=== PATIENT | male | born 1975 | race African-American/Black ===

== ENCOUNTER 2016-07-18 19:20 | Emergency (ER) | payer MEDICARE, OTHER ==
--- NOTE | ~2016-07-18 | EKG ---
PATIENT: JENNIFER GUERRERO UNIT #: [id number] Ventricular Rate: 108 BPM Atrial Rate: 108 BPM P-R Interval: 190 ms QRS Duration: 82 ms Q-T Interval: 332 ms QTC Calculation(Bezet): 444 ms P [place]: 69 degrees Calculated R [place]: 108 degrees Calculated T [place]: 50 degrees Diagnosis Line: Sinus tachycardia Diagnosis Line: Rightward axis Diagnosis Line: Borderline ECG Diagnosis Line: No previous ECGs available Diagnosis Line: Confirmed by AYALA EDMOND MD ([id number]) on Diagnosis Line: 07/20/2016 10:23:58 PM INTERPRETING MD: JOEL
--- NOTE | ~2016-07-18 | CR72 ---
[facility] A Service of [facility] & [facility] RADIOLOGY TEXT RESULTS PATIENT: JENNIFER GUERRERO LOCATION: [facility] : 75 UNIT #: [id number] AGE: [address]: Rene Lewis MD SEX: M ORDER DR: [id number] [facility] [address] [place], [place] [address] [id number] E MR#: [id number] Acc #: [id number] NAME: JENNIFER GUERRERO : 1975 SEX: M STUDY DATE/TIME: 07/18/2016 18:30 UNIT: [facility] ROOM: STUDY DESCRIPTION: CR Chest Single View Portable Attending Physician: Yoandy Mariscal Referring Physician: Primary Care Physician No Ordering Physician: Ed Doctor [id number] [facility] Primary Care Physician: No Primary Care Physician MEDICAL IMAGING REPORT This report is preliminary unless electronic signature is present EXAM Portable chest HISTORY Unresponsive today. Hypoglycemia. FINDINGS Left subclavian port catheter tip in the upper SVC. Cardiac size and pulmonary vascularity are normal. No airspace infiltrates or effusions. IMPRESSION No acute findings. No active disease. Lungs are clear. Dictated by... Nando Huang M.D. THIS IS AN ELECTRONICALLY VERIFIED REPORT Nando Huang M.D. at 07/19/2016 3:35 PM EAGLE/joe TD: 07/18/2016 23:55 JOB #: [id number] MEDICAL IMAGING REPORT COPY
--- NOTE | ~2016-07-18 | CT71 ---
[facility] A Service of [facility] RADIOLOGY TEXT RESULTS PATIENT: JENNIFER GUERRERO LOCATION: [facility] : 75 UNIT #: [id number] AGE: [address]: Rene Lewis MD SEX: M ORDER DR: [id number] [facility] [address] [place], [place] [address] [id number] E MR#: [id number] Acc #: [id number] NAME: JENNIFER GUERRERO. : 1975 SEX: M STUDY DATE/TIME: 07/18/2016 18:40 UNIT: JANY ROOM: STUDY DESCRIPTION: CT Head Wo Contrast Ordering Physician: Richard Israel M.D. MEDICAL IMAGING REPORT This report is preliminary unless electronic signature is present EXAM CT head without contrast INDICATIONS Patient confusion and combativeness since last night at 10 o'clock[address] TECHNIQUE Axial CT images were obtained from the vertex of the skull through the skull base. No intravenous contrast was administered. This CT exam was performed with one or more of the following radiation dose reduction techniques: automatic exposure control, adjustment of mA and/or kV according to patient size, and iterative reconstruction. FINDINGS No acute intracranial hemorrhage is identified. Brain parenchyma is normal in attenuation with no midline shift or mass effect. Ventricles are normal in size. No aggressive osseous abnormalities are seen. Visualized paranasal sinuses and mastoid air cells appear clear, other than a somewhat atrophic appearance to the right mastoid air cells which may reflect changes of chronic mastoiditis. I do not see any focal soft tissue abnormalities. Patient is noted to have some atherosclerotic involvement of the cavernous carotid arteries which is somewhat advanced for this patient's age of 41. IMPRESSION No acute intracranial process identified. Specifically, there is no evidence of acute hemorrhage, mass lesion or acute infarct. Dictated by... Anastasiia Martínez M.D. THIS IS AN ELECTRONICALLY VERIFIED REPORT [facility] A Service of [facility] RADIOLOGY TEXT RESULTS PATIENT: JENNIFER GUERRERO LOCATION: [facility] : 75 UNIT #: [id number] AGE: [address]: Rene Lewis MD SEX: M ORDER DR: Anastasiia Martínez M.D. at 07/21/2016 1:17 PM AFF/pcl TD: 07/18/2016 23:50 JOB #: [id number] MEDICAL IMAGING REPORT COPY
--- NOTE | ~2016-07-18 | EKG ---
PATIENT: JENNIFER GUERRERO UNIT #: [id number] Ventricular Rate: 120 BPM Atrial Rate: 120 BPM P-R Interval: 136 ms QRS Duration: 76 ms Q-T Interval: 308 ms QTC Calculation(Bezet): 435 ms P [place]: 80 degrees Calculated R [place]: 152 degrees Calculated T [place]: 46 degrees Diagnosis Line: Sinus tachycardia Diagnosis Line: Biatrial enlargement Diagnosis Line: Right axis deviation Diagnosis Line: Abnormal ECG Diagnosis Line: When compared with ECG of 18-JUL-2016 18:51, Diagnosis Line: (unconfirmed) Diagnosis Line: No significant change was found Diagnosis Line: Confirmed by AYALA EDMOND MD ([id number]) on Diagnosis Line: 07/20/2016 10:36:21 PM INTERPRETING MD: JOEL
--- NOTE | ~2016-07-18 | ER ---
Unit #: [id number] #: [id number] Patient: JENNIFER GUERRERO [id number] [address] [place], [place] [address] [id number] E MR#: [id number] NAME: JENNIFER GUERRERO ROOM: Sex: M Age: 41 : 1975 Service Date: 07/18/2016 Attending Physician: Rene Lewis M.D. Primary Care Physician: No Primary Care Physician EMERGENCY DEPT PHYSICIAN NOTE Please see the written T sheet for the full details of the encounter. Mr. Guerrero is a 41-year-old man who initially presented yesterday at four in the afternoon for episode of low blood sugar and altered mental status. From reading the previous notes, apparently, the patient was treated with Glucagon by EMS and, immediately upon becoming more alert, was noted to be combative, agitated and uncooperative. The patient's past medical history is notable for a documented "brain cyst" and also blindness. The patient has a PowerPort presumably related to the above medical issues. A complete medical workup was undertaken to rule out any organic cause contributing to the patient's altered mental state. Looking through the labs and head CT, there does not appear to be anything acute or abnormal. Apparently, throughout the night, the patient remained confused and combative being uncooperative with treatment. There are several notes indicating that the patient refused to keep monitor leads on including trying to leave the bed and leave the emergency department while remaining extremely combative. Yesterday, at approximately 6 p.m., the patient was administered Geodon to chemically sedate him for his safety. Once a full medical workup was deemed to be normal and noncontributory to the patient's altered mental status, [facility] was contacted to evaluate the patient. However, it was noted at approximately midnight that [facility] was unable to provide anyone to evaluate the patient until approximately 8 a.m. this morning. Apparently, after the patient was administered Geodon, he was much calmer and was willing to be placed on the monitor and observed. This a.m., the nurse caring for the patient stated that upon her evaluation the patient was much more calm, was oriented to place and situation. Upon my evaluation, the patient seemed calm, oriented and did not express any suicidal or homicidal thoughts. However, on further questioning of the patient, it was apparent that he still suffered from some component of altered mental status and that he was unable to provide an address or phone number or anyone to contact to provide him with a ride. As such and given the initial concerning level of altered mental status and confusion, we will proceed with the evaluation from [facility] to assure the patient's safety and address any possible mental health issues that may be contributing to this patient's encounter. Disposition will depend on the results of the evaluation by [facility]. Dictated by... Rene Lewis M.D. Unit #: [id number] #: [id number] Patient: JENNIFER GUERRERO CODEY/yanni TD: 07/20/2016 18:31 JOB #: [id number] EMERGENCY DEPT PHYSICIAN NOTE X Rene Lewis MD X EMERGENCY DEPARTMENT REPORT
[2016-07-18 18:58] LABS: URINE SOURCE CATH
[2016-07-18 19:03] LABS: URINE APPEARANCE CLEAR; URINE BILIRUBIN NEG (NEG); URINE BLOOD NEG (NEG); URINE COLOR YELLOW; URINE GLUCOSE NEG (NEG); URINE KETONE NEG (NEG); URINE LEUKOCYTE ESTERASE NEG (NEG); URINE NITRATE NEG (NEG); URINE PH 5.5 (5-8); URINE PROTEIN NEG (NEG); URINE SPECIFIC GRAVITY 1.013 (1.003-1.035); URINE UROBILINOGEN 0.2 MG/DL (NEG)
[2016-07-18 19:14] LABS: CULTURE INDICATED? NO
[2016-07-18 19:18] LABS: AMPHETAMINE NEG (NEG); BARBITURATES NEG (NEG); BENZODIAZEPINES NEG (NEG); COCAINE NEG (NEG); MARIJUANA NEG (NEG); OPIATES POS (NEG); TRICYCLIC ANTIDEPRESSANTS NEG (NEG); U METHADONE NEG (NEG)
[~2016-07-18 19:20] MED LIST: HUMULIN 70/30 V10 ML SQ; HUMULIN N300 U/3 ML; HUMULIN R100 U/ML; TYLOX 5/500 CAP1 CAP PO
[2016-07-18 20:25] LABS: BASOPHIL# 0.1 X10e3 (0-0.3); BASOPHIL% 0.6 % (0-2.5); EOSINOPHIL% 0.2 % (0.0-7.0); HEMATOCRIT 45.5 % (38.0-50.0); HEMOGLOBIN 15.1 gm/dL (13.0-16.0); LYMPHOCYTE# 1.4 X10e3 (1.0-3.5); LYMPHOCYTE% 10.4 % (17.0-45.0); MEAN CELL VOLUME 92.6 FL (83-96); MEAN CORPUSCULAR HEMOGLOBIN 30.9 PG (28-34); MEAN CORPUSCULAR HGB CONC 33.3 g/dL (30-36); MEAN PLATELET VOLUME 9.1 FL (6.5-11.5); MONOCYTE# 0.6 X10e3 (0-1.0); MONOCYTE% 4.6 % (3.0-12.0); NEUTROPHIL# 11.5 X10e3 (1.5-7.1); NEUTROPHIL% 84.2 % (40-75); PLATELET COUNT 144 X10e3 (140-420); RED BLOOD COUNT 4.91 X10e (3.90-5.60); RED CELL DISTRIBUTION WIDTH 13.3 % (11.0-15.5); WHITE BLOOD COUNT 13.6 X10e3 (4.0-10.5)
[2016-07-18 20:29] LABS: DIFF IND NO
[2016-07-18 20:32] LABS: POC - CKMB 5.5 ng/mL (0.0-7.9); POC - TROPONIN <0.05 ng/mL (<=0.05)
[2016-07-18 20:54] LABS: ALBUMIN SERUM 3.7 g/dL (3.5-5.0); ALKALINE PHOSPHATASE 31 U/L (32-92); ALT (SGPT) 15 U/L (10-40); AST (SGOT) 30 U/L (10-42); BILIRUBIN, DIRECT 0.1 mg/dL (0.0-0.2); BILIRUBIN,INDIRECT 0.7 mg/dL (0.0-0.9); BILIRUBIN,TOTAL 0.8 mg/dL (0.2-2.0); BLOOD UREA NITROGEN 12 mg/dL (9-23); CALCIUM SERUM 9.4 mg/dL (8.4-10.2); CARBON DIOXIDE 27 mmol/L (22-31); CHLORIDE 104 mmol/L (100-111); GLOM FILT RATE Estimated ABOVE60 mL/min (>60); GLUCOSE FASTING 97 mg/dL (70-110); POTASSIUM 3.8 mmol/L (3.5-5.1); PROTEIN TOTAL SERUM 6.9 g/dL (6.0-8.3); SALICYLATE <4.0 mg/dL; SODIUM 142 mmol/L (135-145)
[2016-07-18 20:56] LABS: ACETAMINOPHEN <10 ug/mL; ALCOHOL BLOOD <5 mg/dL (0)
== END 2016-07-19 09:56 | disposition home or self-care (01) ==
LOC: CED 19:20
PROVIDERS: Emergency Medicine
DX: R41.82 Altered mental status, unspecified (principal); E11.9 Type 2 diabetes mellitus without complications; F17.210 Nicotine dependence, cigarettes, uncomplicated; Z88.8 Allergy status to other drugs, medicaments and biological substances; Z88.0 Allergy status to penicillin
CPT/HCPCS: 36415; 51701; 70450; 71010; 80048; 80076; 80307; 81003; 82140; 82553; 82947; 84484; 85025; 93005; 96372; 99285; G0480; J3486

== ENCOUNTER 2016-08-13 16:30 | Emergency (ER) | payer MEDICARE, OTHER | END 2016-08-13 20:00 | disposition home or self-care (01) | LOC: CED 16:30 | DX: Z53.21 Procedure and treatment not carried out due to patient leaving prior to being seen by health care provider (principal) ==

== ENCOUNTER 2016-09-26 16:09 | Emergency (ER) | payer MEDICARE ==
--- NOTE | ~2016-09-26 | CT4 ---
[facility] A Service of [facility] RADIOLOGY TEXT RESULTS PATIENT: JENNIFER GUERRERO LOCATION: [facility] : 75 UNIT #: [id number] AGE: [address]: Yoandy Mariscal MD SEX: M ORDER DR: [id number] [facility] [address] [place], [place] [address] [id number] E MR#: [id number] Acc #: [id number] NAME: JENNIFER GUERRERO : 1975 SEX: M STUDY DATE/TIME: 09/26/2016 18:34 UNIT: [facility] ROOM: STUDY DESCRIPTION: CT Abd and Pelv Wo Cont Attending Physician: Adolfo Mariscal M.D. Ordering Physician: Adolfo Mariscal M.D. Primary Care Physician: Anthony Duenas M.D. MEDICAL IMAGING REPORT This report is preliminary unless electronic signature is present EXAM CT abdomen and pelvis without contrast HISTORY Left lower quadrant pain for a week with vomiting. There is no comparison. TECHNIQUE Axial 3 mm images were obtained through the abdomen and pelvis without IV contrast. Oral contrast was administered. This CT exam was performed with one or more of the following radiation dose reduction techniques: automatic control, adjustment of mA and/or kV according to patient size, and iterative reconstruction. FINDINGS The lung bases are clear. The liver, gallbladder, spleen, pancreas, adrenal glands and kidneys are normal. The aorta is normal in size and there is no adenopathy. The bowel is normal. The bladder and prostate gland are normal. I do not see any evidence of diverticulitis. The bones are unremarkable. IMPRESSION 1. Study is normal. I do not see any cause for the patient's left lower quadrant pain such as diverticulitis or urinary stones. Dictated by... Mike Bacon M.D. THIS IS AN ELECTRONICALLY VERIFIED REPORT Mike Bacon M.D. at 09/27/2016 2:00 PM FEL/rnr [facility] A Service of [facility] RADIOLOGY TEXT RESULTS PATIENT: JENNIFER GUERRERO [id number] 75 UNIT #: [id number] AGE: [address]: Yoandy Mariscal MD SEX: M ORDER DR: TD: 09/27/2016 05:29 JOB #: [id number] MEDICAL IMAGING REPORT Page 1 of 1 COPY
[2016-09-26 16:25] LABS: URINE SOURCE CLEAN CATCH
[2016-09-26 16:31] LABS: URINE APPEARANCE CLEAR; URINE BILIRUBIN NEG (NEG); URINE BLOOD NEG (NEG); URINE COLOR DK YELLOW; URINE GLUCOSE 250 MG/DL (NEG); URINE KETONE TRACE (NEG); URINE LEUKOCYTE ESTERASE NEG (NEG); URINE NITRATE NEG (NEG); URINE PH 5.5 (5-8); URINE PROTEIN TRACE (NEG); URINE SPECIFIC GRAVITY 1.025 (1.003-1.035)
[2016-09-26 16:33] LABS: CULTURE INDICATED? NO
[2016-09-26 20:35] LABS: ALBUMIN SERUM 3.8 g/dL (3.5-5.0); ALKALINE PHOSPHATASE 30 U/L (32-92); ALT (SGPT) 21 U/L (10-40); AMYLASE 47 U/L (0-46); AST (SGOT) 23 U/L (10-42); BILIRUBIN, DIRECT <0.1 mg/dL (0.0-0.2); BILIRUBIN,INDIRECT 0.4 mg/dL (0.0-0.9); BILIRUBIN,TOTAL 0.5 mg/dL (0.2-2.0); BLOOD UREA NITROGEN 12 mg/dL (9-23); CALCIUM SERUM 9.2 mg/dL (8.4-10.2); CARBON DIOXIDE 26 mmol/L (22-31); CHLORIDE 104 mmol/L (100-111); CREATININE SERUM 1.2 mg/dL (0.6-1.4); GLOM FILT RATE Estimated 86.6 mL/min (>60); GLUCOSE FASTING 109 mg/dL (70-110); LIPASE 44 U/L (22-51); PROTEIN TOTAL SERUM 6.7 g/dL (6.0-8.3); SODIUM 138 mmol/L (135-145)
== END 2016-09-26 20:39 | disposition home or self-care (01) ==
LOC: CED 16:09
PROVIDERS: Emergency Medicine
DX: R10.32 Left lower quadrant pain (principal); E11.9 Type 2 diabetes mellitus without complications; F17.210 Nicotine dependence, cigarettes, uncomplicated; Z79.4 Long term (current) use of insulin; Z88.0 Allergy status to penicillin; Z88.5 Allergy status to narcotic agent
CPT/HCPCS: 74176; 80048; 80076; 81003; 82150; 83690; 99284

== ENCOUNTER 2016-11-02 12:18 | Emergency (ER) | payer MEDICARE, OTHER ==
--- NOTE | ~2016-11-02 | EKG ---
PATIENT: JENNIFER GUERRERO UNIT #: [id number] Ventricular Rate: 94 BPM Atrial Rate: 94 BPM P-R Interval: 138 ms QRS Duration: 80 ms Q-T Interval: 326 ms QTC Calculation(Bezet): 407 ms P [place]: 78 degrees Calculated R [place]: 123 degrees Calculated T [place]: 18 degrees Diagnosis Line: Normal sinus rhythm Diagnosis Line: Right axis deviation Diagnosis Line: Abnormal ECG Diagnosis Line: When compared with ECG of 18-JUL-2016 22:40, Diagnosis Line: No significant change was found Diagnosis Line: Confirmed by OLI CASTILLO MD ([id number]) on 11/02/2016 Diagnosis Line: 4:53:14 PM INTERPRETING MD: ANNA VALDERRAMA
--- NOTE | ~2016-11-02 | CR72 ---
[facility] A Service of [facility] RADIOLOGY TEXT RESULTS PATIENT: JENNIFER GUERRERO LOCATION: [facility] : 75 UNIT #: [id number] AGE: [address]: Jennifer Carlson MD SEX: M ORDER DR: [id number] [facility] [address] [place], [place] [address] [id number] E MR#: [id number] Acc #: [id number] NAME: JENNIFER GUERRERO. : 1975 SEX: M STUDY DATE/TIME: 11/02/2016 13:26 UNIT: [facility] ROOM: STUDY DESCRIPTION: CR Chest Single View Portable Attending Physician: Jennifer Carlson M.D. Ordering Physician: Jennifer Carlson M.D. Primary Care Physician: Anthony Duenas M.D. MEDICAL IMAGING REPORT This report is preliminary unless electronic signature is present EXAM Portable chest x-ray, 11/02/2016 HISTORY Chest pain began yesterday. Smoker 20 years. FINDINGS AP radiograph of the chest presented. COMPARISON STUDIES 07/18/2016. FINDINGS On today's examination, the left-sided chest port remains in place. The tip of the catheter is directed toward the right. This positioning is different than on the prior examination when it was directed caudad within the superior vena cava. Given the projection on this study, the tip of the catheter could be of abutting the superior vena caval wall. It is possible that the catheter may be extending just into the azygos vein orifice. Please correlate with the port function. Overall positioning could be further evaluated with lateral radiograph of the chest or elective port injection. The bony structures are unremarkable. The heart and mediastinum are normal in size and contour. Lungs appear slightly hyperinflated likely reflecting some degree of underlying COPD in this patient with history of tobacco usage. There is no indication of acute pulmonary disease, pleural effusion or pneumothorax. No suspicious nodule. Visualized upper abdomen remarkable. Dictated by... Triston Viramontes M.D. [facility] A Service of [facility] RADIOLOGY TEXT RESULTS PATIENT: JENNIFER GUERRERO LOCATION: [facility] : 75 UNIT #: [id number] AGE: [address]: Jennifer Carlson MD SEX: M ORDER DR: THIS IS AN ELECTRONICALLY VERIFIED REPORT Triston Viramontes M.D. at 11/03/2016 8:13 AM Uriel TD: 11/02/2016 21:15 JOB #: [id number] MEDICAL IMAGING REPORT Page 1 of 1 COPY
[2016-11-02 15:04] LABS: POC - CKMB <1.0 ng/mL (0.0-7.9); POC - TROPONIN <0.05 ng/mL (<=0.05)
[2016-11-02 15:27] LABS: ALBUMIN SERUM 3.4 g/dL (3.5-5.0); BILIRUBIN, DIRECT 0.1 mg/dL (0.0-0.2); BILIRUBIN,INDIRECT 0.8 mg/dL (0.0-0.9); BILIRUBIN,TOTAL 0.9 mg/dL (0.2-2.0); BUN/CREATININE RATIO 11.81; CALCIUM SERUM 8.7 mg/dL (8.4-10.2); CREATININE SERUM 1.1 mg/dL (0.6-1.4); GLOM FILT RATE Estimated 96.2 mL/min (>60); POTASSIUM 3.5 mmol/L (3.5-5.1); PROTEIN TOTAL SERUM 6.2 g/dL (6.0-8.3)
[2016-11-02 16:57] LABS: BASOPHIL# 0.1 X10e3 (0-0.3); BASOPHIL% 0.7 % (0-2.5); DIFF IND NO; EOSINOPHIL# 0.3 X10e3 (0-0.7); EOSINOPHIL% 3.1 % (0.0-7.0); HEMATOCRIT 45.7 % (38.0-50.0); HEMOGLOBIN 14.9 gm/dL (13.0-16.0); LYMPHOCYTE# 2.5 X10e3 (1.0-3.5); LYMPHOCYTE% 27.4 % (17.0-45.0); MEAN CELL VOLUME 92.7 FL (83-96); MEAN CORPUSCULAR HEMOGLOBIN 30.2 PG (28-34); MEAN CORPUSCULAR HGB CONC 32.6 g/dL (30-36); MEAN PLATELET VOLUME 8.6 FL (6.5-11.5); MONOCYTE% 11.4 % (3.0-12.0); NEUTROPHIL# 5.1 X10e3 (1.5-7.1); NEUTROPHIL% 57.4 % (40-75); PLATELET COUNT 161 X10e3 (140-420); RED BLOOD COUNT 4.93 X10e (3.90-5.60); RED CELL DISTRIBUTION WIDTH 12.7 % (11.0-15.5)
[2016-11-02 17:01] LABS: POC - CKMB 3.1 ng/mL (0.0-7.9); POC - TROPONIN <0.05 ng/mL (<=0.05)
[2016-11-02 17:14] LABS: PROTHROMBIN TIME (PATIENT) 10.1 SECONDS (9.6-11.5)
== END 2016-11-02 17:54 | disposition home or self-care (01) ==
LOC: CED 12:18
PROVIDERS: Emergency Medicine
DX: R07.89 Other chest pain (principal); E11.9 Type 2 diabetes mellitus without complications
CPT/HCPCS: 36415; 71010; 80048; 80076; 82553; 84484; 85025; 85610; 85730; 93005; 99285; J1642

== ENCOUNTER 2016-12-12 20:53 | Inpatient (IN) | payer MEDICARE, OTHER ==
[~2016-12-12] VITALS: Ht 175.3 cm; Wt 70.2 kg
--- NOTE | ~2016-12-12 | TH ---
Unit #: [id number] #: [id number] Patient: JENNIFER GUERRERO [id number] [address] [address] [id number] I MR#: [id number] NAME: JENNIFER GUERRERO. : 1975 SEX: M STUDY DATE/TIME: 12/19/2016 UNIT: C3A PCU ROOM: 310 STUDY DESCRIPTION: Stress nuclear study Attending Physician: Deanne Roque M.D. Primary Care Physician: Anthony Duenas M.D. CARDIOLOGY REPORT EXAM Stress nuclear study. INDICATIONS Chest pain, dyspnea, inability to exercise, tobacco abuse, peripheral artery disease, and diabetes. SUMMARY Patient received Lexiscan intravenously while at rest as well as technetium 99 Cardiolite, 8.74 and 30.7 mCi at rest and stress, respectively. Appropriate views were obtained. FINDINGS The ECG is reported separately. There was shortness of breath and mild chest tightness, but no ECG changes, briefly reviewed. Perfusion images show mild motion during resting image acquisition and moderately severe motion during stress image acquisition. Summed stress score is 1. End-diastolic volume is 76 mL and ejection fraction is 62%. There is no significant LV or RV enlargement. There is no significant lung uptake. Perfusion images demonstrate mild diaphragmatic artifact at rest and moderate diaphragmatic artifact with stress, mild chest wall attenuation artifact with stress. These changes appear to be related to patient motion artifact. There is also significant intestinal artifact with stress. IMPRESSION 1. Normal study. Artifact changes only. 2. Normal wall motion and LV size. 3. 1. Dictated by... Bean Triana M.D. ASIM/harpreet TD: 12/20/2016 09:52 JOB #: [id number] Unit #: [id number] #: [id number] Patient: JENNIFER GUERRERO CARDIOLOGY REPORT Page 1 of 1 X Bean Triana MD CARDIOLOGY REPORT
--- NOTE | ~2016-12-12 | CR72 ---
[facility] A Service of [facility] & [facility] RADIOLOGY TEXT RESULTS PATIENT: JENNIFER GUERRERO LOCATION: [facility] 310-01 : 75 UNIT #: [id number] AGE: [address]: Deanne Roque MD SEX: M ORDER DR: [id number] [facility] [address] [place], [place] [address] [id number] I MR#: [id number] Acc #: [id number] NAME: JENNIFER GUERRERO : 1975 SEX: M STUDY DATE/TIME: 12/12/2016 23:11 UNIT: [address] ROOM: [facility] STUDY DESCRIPTION: CR Chest Single View Portable Attending Physician: Deanne Roque M.D. Ordering Physician: Davian Bangura M.D. Primary Care Physician: Anthony Duenas M.D. MEDICAL IMAGING REPORT This report is preliminary unless electronic signature is present EXAM Portable chest, 12/12 23:11 INDICATION Weakness. Syncopal episode. Cannot walk. Symptoms today. FINDINGS AP portable chest is compared with 11/02/2016. Left side Port-A-Cath has been removed. A right side Port-A-Cath has its tip in the SVC. Cardiac and mediastinal contours are normal. Lungs are clear. No pneumothorax. IMPRESSION No active disease. Dictated by... Sarkis Hurst Jr., M.D. THIS IS AN ELECTRONICALLY VERIFIED REPORT Sarkis Hurst Jr., M.D. at 12/13/2016 8:50 PM ADRIAN/jethro TD: 12/13/2016 10:38 JOB #: [id number] MEDICAL IMAGING REPORT Page 1 of 1 COPY
--- NOTE | ~2016-12-12 | MR122 ---
[facility] A Service of [facility] & [facility] RADIOLOGY TEXT RESULTS PATIENT: JENNIFER GUERRERO LOCATION: [facility] 310-01 : 75 UNIT #: [id number] AGE: [address]: Deanne Roque MD SEX: M ORDER DR: [id number] [facility] [address] [facility] [place], [place] [address] [id number] I MR#: [id number] Acc #: [id number] NAME: JENNIFER GUERRERO. : 1975 SEX: M STUDY DATE/TIME: 12/15/2016 21:05 [facility]: 310 STUDY DESCRIPTION: MR MRA Head Wo Contrast Attending Physician: Deanne Roque M.D. Ordering Physician: Shantel Mar M.D. Primary Care Physician: Anthony Duenas M.D. MRI CENTER REPORT This report is preliminary unless electronic signature is present. EXAM Intracranial MR angiogram HISTORY Left-sided weakness onset 12/12/2016. TECHNIQUE MR angiographic imaging was performed from the skull base to the osage of Carbajal. FINDINGS There is absence of flow in the right distal internal carotid artery. There is good cross filling from left to right at the osage of Carbajal. On the left side the internal carotid artery is patent up into the siphon. There appears to be moderate siphon disease with siphon stenosis of approximately 50% in the efferent limb. There is a focal area of diminished flow on the 2-D ilqw-bu-rujajh images at the origin of the left A1 segment but this area was rescanned with 3-D xpks-hg-zfhhqg imaging showing a normal pattern. This is felt to represent artifact. In the posterior circulation the basilar artery and its major branch vessels are widely patent. The distal left vertebral is more dominant than the right. No aneurysms are seen. Moderate small vessel atherosclerotic disease is seen in distal branches of the anterior and middle cerebral artery distributions. IMPRESSION 1. Occluded right internal carotid artery. 2. Moderate small vessel disease in the anterior middle cerebral artery circulations. 3. No evidence of aneurysm or intracranial branch vessel occlusion with a widely patent posterior circulation. Dictated by... [facility] A Service of [facility] & [facility] RADIOLOGY TEXT RESULTS PATIENT: JENNIFER GUERRERO LOCATION: [facility] 310-01 : 75 UNIT #: [id number] AGE: [address]: Deanne Roque MD SEX: M ORDER DR: Sarkis Patel M.D. THIS IS AN ELECTRONICALLY VERIFIED REPORT Sarkis Patel M.D. at 12/16/2016 4:51 PM Cem TD: 12/16/2016 12:29 JOB #: [id number] MRI CENTER REPORT Page 1 of 1 COPY
--- NOTE | ~2016-12-12 | CT72 ---
[facility] A Service [facility] RADIOLOGY TEXT RESULTS PATIENT: JENNIFER GUERRERO LOCATION: [facility] 310-01 : 75 UNIT #: [id number] AGE: [address]: Deanne Roque MD SEX: M ORDER DR: [id number] [facility] [address] [place], [place] [address] [id number] I MR#: [id number] Acc #: [id number] NAME: JENNIFER GUERRERO. : 1975 SEX: M STUDY DATE/TIME: 12/12/2016 UNIT: [facility] ROOM: [address] STUDY DESCRIPTION: CT Head Wo Contrast Stroke Attending Physician: Deanne Roque M.D. Ordering Physician: Davian Bangura M.D. Primary Care Physician: Anthony Duenas M.D. MEDICAL IMAGING REPORT This report is preliminary unless electronic signature is present EXAM CT of the brain without contrast. HISTORY Left arm and leg weakness today. TECHNIQUE This CT exam was performed with one or more of the following radiation dose reduction techniques: automatic exposure control, adjustment of mA and/or kV according to patient size, and iterative reconstruction. FINDINGS CT brain without contrast demonstrates no intracranial hemorrhage, mass or edema. No midline shift or ventricular dilatation or extraaxial fluid collection. Postop changes in the right globe. Atherosclerotic calcification in the cavernous carotid arteries bilaterally. IMPRESSION Negative CT brain. No acute findings. Dictated by... Nando Huang M.D. THIS IS AN ELECTRONICALLY VERIFIED REPORT Nando Huang M.D. at 12/13/2016 1:24 PM DFL/julien TD: 12/13/2016 01:43 JOB #: [id number] MEDICAL IMAGING REPORT [facility] A Service [facility] RADIOLOGY TEXT RESULTS PATIENT: JENNIFER GUERRERO LOCATION: [facility] 310-01 : 75 UNIT #: [id number] AGE: [address]: Deanne Roque MD SEX: M ORDER DR: Page 1 of 1 COPY
--- NOTE | ~2016-12-12 | ST ---
Unit #: [id number] #: [id number] Patient: JENNIFER GUERRERO [id number] [address] [address] [id number] I MR#: [id number] NAME: JENNIFER GUERRERO. : 1975 SEX: M STUDY DATE/TIME: 12/19/2016 UNIT: C3A PCU ROOM: 310 STUDY DESCRIPTION: Stress Test Attending Physician: Deanne Roque M.D. Primary Care Physician: Anthony Duenas M.D. CARDIOLOGY REPORT EXAM Stress Test REASON FOR EXAM Chest pain. DESCRIPTION Baseline EKG shows normal sinus rhythm, rate of 80 beats per minute. 0.4 mg of Lexiscan was injected per protocol followed by Cardiolite. The patient experienced shortness of breath during the infusion as well as some chest tightness. There were no ST or T wave changes suggestive of ischemia noted. The test was stopped secondary to protocol completion. IMPRESSION 1. Negative EKG portion of Lexiscan Cardiolite. 2. No ST-T wave changes noted suggestive of ischemia. 3. Patient did have some mild chest tightness and shortness of breath during the infusion. However, this resolved in the recovery period. 4. There were no arrhythmias. 5. The patient had a normal blood pressure response. No complications were noted. 6. Please correlate with nuclear imaging. Dictated by... Katie Cobian A.P.R.N. for Estelle Benjamin M.D. LMW/df TD: 12/19/2016 10:40 JOB #: [id number] Unit #: [id number] #: [id number] Patient: JENNIFER GUERRERO CARDIOLOGY REPORT Page 1 of 1 X Katie Cobian APRN CARDIOLOGY REPORT
--- NOTE | ~2016-12-12 | DS ---
Unit #: [id number] #: [id number] Patient: JENNIFER MCCLURE [id number] [address] [address] [id number] I MR#: [id number] NAME: JENNIFER MCCLURE. ROOM: 310 Age: 41 Sex: M Admission Date: 12/13/2016 : 1975 Discharge Date: Attending Physician: Deanne Roque M.D. Primary Care Physician: Anthony Duenas M.D. DISCHARGE SUMMARY FINAL DIAGNOSES 1. Right middle cerebral artery acute infarct. 2. Right internal carotid artery occlusion. 3. Chest pain, status post stress test which shows no ischemia. 4. Insulin dependent diabetes mellitus. 5. Peripheral neuropathy. 6. Tobacco abuse. 7. Ejection fraction of 50% to 55% with mild mitral regurgitation/tricuspid regurgitation. 8. Hypertension. 9. Hyperlipidemia. 10. Peripheral neuropathy. DISCHARGE MEDICATIONS 1. Zanaflex 4 mg t.i.d. p.r.n. 2. Protonix 40 mg daily. 3. Hiwassee 10/325 one tablet q.i.d. p.r.n. for pain. 4. Aspirin 325 mg daily. 5. Levemir 7 units subcu b.i.d. 6. Catapres 0.1 mg q.4 h. p.r.n. for systolic blood pressure above 160. 7. Lipitor 40 mg q.h.s. 8. Norvasc 10 mg daily. 9. Lyrica 150 mg t.i.d. 10. Zanaflex 4 mg t.i.d. p.r.n. 11. Protonix 40 mg daily. 12. Hiwassee 10/325 one tablet q.i.d. p.r.n. 13. Aspirin 325 mg daily. CONSULTATIONS DURING HOSPITALIZATION 1. Dr. Mar from neurology services. 2. Dr. Triana from cardiology services. 3. Dr. Carey from pulmonary services. DIAGNOSTIC STUDIES LABORATORY WORKUP: On discharge BMP shows sodium 138, potassium 4.5, chloride 101, BUN 14, creatinine 1.1; CBC shows WBC 8.6, hemoglobin 13.4, hematocrit 40.1 and platelet count of 142, glucose 175. Blood cultures during hospitalization were negative. D-dimer 332, in normal range. IMAGING: Studies done during hospitalization were; CT scan of the head without contrast on admission which shows negative CT brain. Unit #: [id number] #: [id number] Patient: JENNIFER MCCLURE CTA of the head and neck which shows complete occlusion of the right internal carotid artery within 1.5 cm of its origin. Ultrasound of the kidneys bilateral which shows no evidence of hydronephrosis with probably true increase in echotexture of bilateral kidneys which suggests chronic medical renal disease. MRI of the brain shows evolving acute/delayed acute nonhemorrhagic lacunar infarcts are noted in the right frontoparietal lobe. There are associated increased T2 signals also suggesting evolution towards early subacute state. No hydrocephalus. MRA of the head and neck shows occluded right internal carotid artery; moderate small vessel disease in the anterior middle cerebral artery occlusion. No evidence of aneurysm or intracranial branch vessel occlusion with a widely patent posterior circulation. HOSPITAL COURSE Mr. Jennifer Mcclure is a 41-year-old male who was admitted by my colleague, Dr. Maya, with left-sided weakness. Patient was seen by Dr. Mar and it was decided because of the time he would not be a tPA candidate. CTA showed complete occlusion of the right internal carotid. Dr. Mar has called [facility] and since the time of onset of this occlusion was unclear, they could not go for any intervention at that time and also the degree was unclear. Symptoms started to improve. Stroke workup was done. Patient was also seen by strategic planner for chest pain. Acute FL was ruled out. Cardiolite stress test was done which was negative. There is no further cardiac workup needed. PHYSICAL EXAMINATION ON DISCHARGE VITAL SIGNS: Blood pressure 114/73. Respiratory rate 16. Pulse is 86. Temperature 98.3. Oxygen saturation is 100%. HEENT: Head is normocephalic. CHEST: Has fair air entry. CVS: Regular rhythm. ABDOMEN: Soft. EXTREMITIES: Negative edema. 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 There is slightly decreased strength on the left extremities. DISCHARGE INSTRUCTIONS 1. Patient is being discharged to rehab facility. 2. Medication as per med rec. 3. PT/OT at rehab. 4. Follow up with Dr. Benjamin March 17, 2017 at 12:30 p.m. 5. Follow up with Dr. Yuen, neurologist, in six to eight weeks. 6. Tobacco cessation counseling has been done. [id number] Dictated by... Deanne Roque M.D. Unit #: [id number] #: [id number] Patient: JENNIFER MCCLURE/parminder TD: 12/20/2016 13:35 JOB #: [id number] DISCHARGE SUMMARY Page 1 of 1 X Deanne Roque MD X DISCHARGE SUMMARY
--- NOTE | ~2016-12-12 | EKG ---
PATIENT: JENNIFER GUERRERO UNIT #: [id number] Ventricular Rate: 80 BPM Atrial Rate: 80 BPM P-R Interval: 142 ms QRS Duration: 82 ms Q-T Interval: 372 ms QTC Calculation(Bezet): 429 ms P Tabor: 69 degrees Calculated R Tabor: 105 degrees Calculated T Tabor: 37 degrees Diagnosis Line: Normal sinus rhythm Diagnosis Line: Rightward axis Diagnosis Line: Borderline ECG Diagnosis Line: No previous ECGs available Diagnosis Line: Confirmed by JUAN WATTS MD ([id number]) on Diagnosis Line: 12/18/2016 1:33:42 PM INTERPRETING MD: MAC VALDERRAMA
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
--- NOTE | ~2016-12-12 | CT18 ---
[facility] A Service of [facility] & [facility] RADIOLOGY TEXT RESULTS PATIENT: JENNIFER GUERRERO LOCATION: [facility] 310-01 : [birth year] UNIT #: [id number] AGE: [address]: Deanne Roque MD SEX: M ORDER DR: [id number] [facility] [address] [place], [place] [address] [id number] I MR#: [id number] Acc #: [id number] NAME: JENNIFER GUERRERO : 1975 SEX: M STUDY DATE/TIME: 12/12/2016 21:20 UNIT: [address] ROOM: [facility] STUDY DESCRIPTION: CT Angio Head Stroke Attending Physician: Deanne Roque M.D. Ordering Physician: Davian Bangura M.D. Primary Care Physician: Anthony Duenas M.D. MEDICAL IMAGING REPORT This report is preliminary unless electronic signature is present EXAM CT angiogram of the head HISTORY FINDINGS Please see CT angiogram of the neck for results. Dictated by... Mechelle Lopez M.D. THIS IS AN ELECTRONICALLY VERIFIED REPORT Mechelle Lopez M.D. at 12/13/2016 7:57 PM CPR/jethro TD: 12/13/2016 10:24 JOB #: [id number] MEDICAL IMAGING REPORT Page 1 of 1 COPY
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
--- NOTE | ~2016-12-12 | US77 ---
[facility] A Service of [facility] & [facility] RADIOLOGY TEXT RESULTS PATIENT: JENNIFER GUERRERO LOCATION: [facility] 310-01 : [birth year] UNIT #: [id number] AGE: [address]: Deanne Roque MD SEX: M ORDER DR: [id number] [facility] [address] [facility] [place], [place] [address] [id number] I MR#: [id number] Acc #: [id number] NAME: JENNIFER GUERRERO. : 1975 SEX: M STUDY DATE/TIME: 12/13/2016 10:03 UNIT: A U ROOM: 310 STUDY DESCRIPTION: US Kidney Bilateral Complete Attending Physician: Deanne Roque M.D. Ordering Physician: Carolina Ferrer M.D. Primary Care Physician: Anthony Duenas M.D. MEDICAL IMAGING REPORT This report is preliminary unless electronic signature is present EXAM Ultrasound of the kidneys, bilateral complete. HISTORY Acute renal failure. Abnormal labs with eGFR 56.8, BUN 15, creatinine 1.7. COMMENT Real-time ultrasonography of the bilateral kidneys and limited imaging through the urinary bladder reviewed. COMPARISON There is an abdomen and pelvis CT scan without contrast from 09/26/2016. FINDINGS This technically limits the study with suboptimal sonographic windows. Allowing for this, there is no evidence for hydronephrosis either right or left kidney. Right kidney measures 9.4 x 4.9 x 5.3 cm. Left kidney measures 8.9 x 4.6 x 3.7 cm. No obvious focal mass or shadowing calculus. The renal echotexture is probably mildly increased bilaterally, and this appearance raises concern for chronic medical renal disease. Please correlate with history. The imaging through the bladder is limited. It is probably largely decompressed and poorly evaluated. IMPRESSION 1. There is no evidence for hydronephrosis. There is probably true increase in echo texture of bilateral kidneys which suggests chronic medical renal disease. I suspect there is some overall decrease size of the kidneys. Measurements provided above. Please correlate with known kidney disease history. 2. Suboptimal sonographic windows for the examination. 3. Bladder is poorly evaluated. It is probably largely decompressed. STS. [facility] A Service of [facility] & [facility] RADIOLOGY TEXT RESULTS PATIENT: JENNIFER GUERRERO LOCATION: [facility] 310-01 : [birth year] UNIT #: [id number] AGE: [address]: Deanne Roque MD SEX: M ORDER DR: Dictated by... Radhika Servin M.D. THIS IS AN ELECTRONICALLY VERIFIED REPORT Radhika Servin M.D. at 12/14/2016 8:11 AM PAMELA/julien TD: 12/13/2016 23:12 JOB #: [id number] MEDICAL IMAGING REPORT Page 1 of 1 COPY
--- NOTE | ~2016-12-12 | CO ---
Unit #: [id number] #: [id number] Patient: JENNIFER MCCLURE [id number] [address] [address] [id number] Reta MR#: [id number] NAME: JENNIFER MCCLURE ROOM: 310 Age: 41 Sex: M Admission Date: 12/13/2016 : 1975 Attending Physician: Deanne Roque M.D. Primary Care Physician: Anthony Duenas M.D. Consultation Date: 12/13/2016 CONSULTATION REPORT REASON FOR CONSULTATION Renal insufficiency. Thank you very much for asking me to see this patient in consultation. HISTORY OF PRESENT ILLNESS Mr. Jennifer Mcclure is a 41-year-old male, who presented to the hospital with left-sided weakness yesterday evening. He was noted upon presentation to have a BUN and creatinine of 15 and 2.2 with sugar of 448 and potassium of 5.9 and sodium of 128. Because of this, I was asked to see the patient. The patient had a negative CT scan of the head. Neurology has been consulted. He states his weakness is improving on his left side. He denies any kidney problems in the past. On reviewing his records in November 02, 2016, he had a creatinine of 1.1. He has been taking a few Excedrin, but not on a regular basis and not in large amount. He denies any nonsteroidal use. He denies any nausea, vomiting, or diarrhea. He denies any shortness of breath or chest pain. He denies any lower extremity swelling. He denies any urinary symptoms. He denies any kidney stones or urinary tract infections. No recent medication changes. 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 He is status post appendectomy. SOCIAL HISTORY Positive smoker. No alcohol. He is unmarried. He does have children. ALLERGIES Penicillin, Toradol, Dilaudid, Darvocet, Percocet, and tramadol. MEDICATIONS His medicines at home include Protonix, insulin, Zanaflex, [place], and Lyrica. REVIEW OF SYSTEMS As mentioned in the HPI, he denies any visual problems, although he states he has had diabetic eye changes in the past. He denies any cough or hemoptysis. No neck pain or neck stiffness. No chest pain, chest heaviness, or shortness of breath. No severe abdominal pain. No nausea or vomiting. No urinary symptoms. He states he does have peripheral neuropathy related to his diabetes. He states he usually keeps his sugars under fairly good control lately. He denies any recent seizures or strokes that he is aware of or any skin rashes. Unit #: [id number] #: [id number] Patient: JENNIFER MCCLURE FAMILY HISTORY His mom and his sister both had dialysis related to diabetes. PHYSICAL EXAMINATION GENERAL: He is alert and oriented. VITAL SIGNS: Temperature is 97.8, pulse 58 to 92, blood pressure 106 to 156 over 72 to 97. HEENT: He is normocephalic and atraumatic. Pupils are equal, round, and reactive to light. Extraocular muscles are intact. Hearing appears to be normal. Mouth is clear. No erythema. No exudate. NECK: Supple. No JVD. No adenopathy. CARDIAC: He has a regular rate without a rub. No S3 or S4. LUNGS: Clear bilaterally. No wheezes, rhonchi, or rales. ABDOMEN: Bowel sounds positive. Nontender. Soft. No masses felt. No hepato-organomegaly noted. EXTREMITIES: He has no significant lower extremity swelling. His pulses are intact in upper and lower extremities. JOINTS: No joint swelling. SKIN: No rashes. NEUROLOGIC: Very limited exam. He is able to move his left side and his right side. : Deferred. DIAGNOSTIC STUDIES LABORATORY RESULTS: Shows sodium of 128, potassium of 5.9, chloride of 95, bicarb of 25, BUN of 15, creatinine of 2.2, glucose of 448, anion gap of 8, albumin of 4, calcium is 9.1. ALT is 45 upon admission. Today, his hemoglobin is 13.5, white count is 13,700 down from 20,000. His platelets are 106,000 down from 116,000. His sodium is 133, potassium is 4.4 today, bicarb is 28, BUN is 15, creatinine 1.7, glucose 182, CPK 358. Lactic acid is 1.8. Tox screen is positive for opioids only. His PTT is 164, I am not sure if he got some heparin when he was in the ER. UA shows specific gravity of 1.038, greater than 1000 of glucose, no protein, rbc's, or wbc's. CT of the head is negative. Again, on November 02, 2016, creatinine is 1.1. ASSESSMENT AND PLAN 1. Acute kidney injury. This gentleman has increased BUN and creatinine, although improving with fluids, and agree with continuing IV fluids. I suspect his sugar was high, he has glucosuria. I suspect he probably has some osmotic diuresis and some volume depletion as a cause of his renal insufficiency. Certainly, hopefully, will continue to improve with IV fluids, we will continue. We will check renal ultrasound. We will check urine studies including eosinophils and urine sodium. The patient does have a decreasing platelets. I am not sure of the exact etiology. I am going to check an LDH and a reticulocyte count as well. 2. Hyponatremia, again most likely related to cellular shifts from hyperglycemia as well as hypovolemia. We will check TSH, get cortisol level in a.m., check urine osmolarity as sodium is improving with IV fluids and will continue. 3. Hyperkalemia, improving with improvement of glucose. 4. Left-sided weakness. Neurology has been consulted. 5. Diabetes. 6. Thrombocytopenia. 7. Increased WBC. Cultures of blood are pending. Urine appears to have no evidence of any infection. Further workup and treatment per primary. Unit #: [id number] #: [id number] Patient: JENNIFER MCCLURE Dictated by.Enma Ferrer M.D. TRISTIN/tristin TD: 12/14/2016 04:46 JOB #: [id number] CONSULTATION REPORT Page 1 of 1 X Breanna Ferrer MD CONSULTATION REPORT
--- NOTE | ~2016-12-12 | HM ---
Unit #: [id number] #: [id number] Patient: JENNIFER GUERRERO [id number] [address] [address] [id number] I MR#: [id number] NAME: JENNIFER GUERRERO : 1975 SEX: M STUDY DATE/TIME: 12/18/2016 UNIT: [id number] ROOM: 310 STUDY DESCRIPTION: 24-hour Holter monitor Attending Physician: Deanne Roque M.D. Primary Care Physician: Anthony Duenas M.D. CARDIOLOGY REPORT EXAM 24-hour Holter monitor. DATE APPLIED 12/14/2016 DATE SCANNED 12/17/[address] Deanne Roque READ BY Dr. Benjamin REASON FOR THE STUDY Stroke. FINDINGS Underlying rhythm is normal sinus rhythm with an average heart rate of 85 beats per minute, minimum heart rate of 71 beats per minute, and a maximum heart rate of 113 beats per minute. The minimum heart rate of 71 beats per minute is noted at 6:14 a.m. The maximum heart rate of 113 beats per minute is noted at 8:32 p.m. Patient had a 0.84-second pause noted at 2:42 p.m. Patient had 9 single premature ventricular complexes and 3 single premature atrial complexes noted. Patient did not record any symptoms. No atrial fibrillation seen. CONCLUSIONS 1. Underlying rhythm is normal sinus rhythm with an average heart rate of 85 beats per minute, minimum heart rate of 71 beats per minute, and a maximum heart rate of 113 beats per minute. 2. No sustained atrial or ventricular arrhythmias noted. 3. No significant pauses noted. 4. Extremely rare single premature atrial complex and single premature ventricular complex noted. 5. No atrial fibrillation noted. 6. Patient did not record any symptoms. 7. Normal 24-hour Holter report. Dictated by... Estelle Benjamin M.D. Unit #: [id number] #: [id number] Patient: JENNIFER GUERRERO Alena TD: 12/18/2016 13:25 JOB #: [id number] CARDIOLOGY REPORT Page 1 of 1 X Estelle Benjamin MD <ELECTRONICALLY SIGNED> 02/12/17 1524 HOLTER MONITOR REPORT
--- NOTE | ~2016-12-12 | CT24 ---
[facility] A Service of [facility] RADIOLOGY TEXT RESULTS PATIENT: JENNIFER GUERRERO LOCATION: [facility] 310-01 : 75 UNIT #: [id number] AGE: [address]: Deanne Roque MD SEX: M ORDER DR: [id number] [facility] [address] [place], [place] [address] [id number] I MR#: [id number] #: [id number] NAME: JENNIFER GUERRERO : 1975 SEX: M STUDY DATE/TIME: 12/12/2016 21:20 [facility] RO[facility]: 310 STUDY DESCRIPTION: CT Angio Neck Stroke Attending Physician: Deanne Roque M.D. Ordering Physician: Davian Bangura M.D. Primary Care Physician: Anthony Duenas M.D. MEDICAL IMAGING REPORT This report is preliminary unless electronic signature is present EXAM CT angiogram of the head and neck with contrast dated 12/12/[address] head without contrast dated 12/12/2016 HISTORY Left arm, left leg weakness today between 14:00 and 16:00 hours. History of cyst in the brain. TECHNIQUE CT angiogram of the head and neck was obtained with IV contrast in the axial plane followed by reformats. Curved reformats of carotid and vertebral arteries was performed in the neck. Reformats of the brain in all three planes, 3-D tumbling MIP reformats were obtained as per the protocol. Surface rendered images with bilateral MCA snapshots were also was obtained at a separate work station. This CT exam was performed with one or more of the following radiation dose reduction techniques: automatic exposure control, adjustment of mA and/or kV according to patient size, and iterative reconstruction. FINDINGS NECK: Two-vessel aortic arch is noted with common origin of the left common carotid artery with the innominate artery. The right common carotid artery is of smaller size when compared to the left without any obvious proximal stenosis. The biggest difference between the right and left common carotid arteries is noted at the level of the superior aspect of the thyroid cartilage where the right measures 5.0 mm and the left 6.5 mm. No significant associated calcified plaque is seen. No intimal flaps are noted either. Mild atherosclerotic plaques are noted at bilateral common carotid artery bifurcations, slightly more on the right when compared to the left without any significant stenosis. No flow is noted [facility] A Service of [facility] RADIOLOGY TEXT RESULTS PATIENT: JENNIFER GUERRERO LOCATION: A 310-01 : 75 UNIT #: [id number] AGE: [address]: Deanne Roque MD SEX: M ORDER DR: in the right internal carotid artery within 1.5 cm of its origin. No flow is noted in the distal portions of the neck not in the head except for distal reconstitution of the right AMISHA, right MCA and supraclinoid distal portion of the right ICA. The left internal carotid artery and bilateral external carotid arteries are unremarkable. Vertebral arteries are of expected course and caliber. They are almost codominant with minimal if any prominence of the left vertebral artery. No dissection, aneurysm or AVM is seen. HEAD: No flow is noted in the right internal carotid artery till the distal right ICA supraclinoid segment close to the terminus. There is cross filling via anterior communicating artery. A tiny right posterior communicating artery cross filling the distal right ICA cannot be completely excluded. The right anterior cerebral artery is slightly smaller when compared to the left. The right middle cerebral artery is symmetrical to the left. Basilar artery, bilateral posterior cerebral arteries are within normal limits. There is decrease in caliber of bilateral V4 segments of the vertebral arteries as they extend towards the basilar artery, likely a congenital variant. Given the lack of plaques, stenosis is less likely. No obvious aneurysm or AVM. Dural venous sinuses are patent without filling defect to suggest acute thrombosis. Scattered few lymph nodes are noted in the neck but they are not enlarged by size criteria. Port cath is in the right upper chest. Various spaces of the neck do not demonstrate any significant abnormality. Mild prominence of the adenoids are incidentally noted. Enhanced brain does not demonstrate any solid enhancing mass. No hydrocephalus or midline shift. Correlate with history of scleral banding of the right eye. Attempts are made to contact the referring physician, Dr. Davian Bangura at 10:30 p.m. on 12/12/2016. Findings were discussed with him in the next 30 minutes. IMPRESSION 1. There is complete occlusion of the right internal carotid artery within 1.5 cm of its origin. No distal flow is seen. It is finally reconstituted in the distal supraclinoid ICA intracranial segment via an anterior communicating artery. Tiny right PCOM cannot be excluded but it is not clearly seen. The right AMISHA is slightly smaller when compared to the left but it has adequate flow extending throughout its course without any superimposed stenosis. Right middle cerebral artery is symmetrical to the left. 2. Decrease in caliber of bilateral vertebral arteries are noted as they extend intracranially towards the basilar artery. It could be a congenital appearance. It is slightly prominent in the right. No obvious plaques are noted to suggest atherosclerotic stenosis. 3. There appears to be asymmetrical decrease in caliber of the right mid common carotid artery at the level of the superior aspect of the thyroid cartilage when compared to the left. There is no distal flow STS. [facility] A Service of [facility] RADIOLOGY TEXT RESULTS PATIENT: JENNIFER GUERRERO LOCATION: [facility] 310-01 : [birth year] UNIT #: [id number] AGE: [address]: Deanne Roque MD SEX: M ORDER DR: limitation. Dictated by... Mechelle Lopez M.D. THIS IS AN ELECTRONICALLY VERIFIED REPORT Mechelle Lopez M.D. at 12/13/2016 7:57 PM CPR/jethro TD: 12/13/2016 10:23 JOB #: [id number] MEDICAL IMAGING REPORT Page 1 of 1 COPY
--- NOTE | ~2016-12-12 | EKG ---
PATIENT: JENNIFER GUERRERO UNIT #: [id number] Ventricular Rate: 85 BPM Atrial Rate: 85 BPM P-R Interval: 160 ms QRS Duration: 90 ms Q-T Interval: 338 ms QTC Calculation(Bezet): 402 ms P [place]: 73 degrees Calculated R [place]: 102 degrees Calculated T [place]: 31 degrees Diagnosis Line: Normal sinus rhythm Diagnosis Line: Possible Left atrial enlargement Diagnosis Line: Rightward axis Diagnosis Line: Borderline ECG Diagnosis Line: When compared with ECG of 02-NOV-2016 12:24, Diagnosis Line: No significant change was found Diagnosis Line: Confirmed by AYALA EDMOND MD ([id number]) on Diagnosis Line: 12/15/2016 8:04:49 PM INTERPRETING MD: JOEL
--- NOTE | ~2016-12-12 | MR17 ---
[facility] A Service of [facility] RADIOLOGY TEXT RESULTS PATIENT: JENNIFER GUERRERO LOCATION: [facility] 310-01 : 75 UNIT #: [id number] AGE: [address]: Deanne Roque MD SEX: M ORDER DR: [id number] [facility] [address] [place], [place] [address] [id number] I MR#: [id number] Acc #: [id number] NAME: JENNIFER GUERRERO. : 1975 SEX: M STUDY DATE/TIME: 12/13/2016 12:57 [facility] RO[facility]: 310 STUDY DESCRIPTION: MR Brain WWo Contrast Attending Physician: Deanne Roque M.D. Ordering Physician: Shantel Mar M.D. Primary Care Physician: Anthony Duenas M.D. MRI CENTER REPORT This report is preliminary unless electronic signature is present. EXAM MRI of the brain with and without, dated 12/13/2016. COMPARISON CT head without contrast, dated 12/12/2016. HISTORY This patient started with left-sided weakness on 12/12/2016 evening. FINDINGS Multisequence, multiplanar imaging of the brain was obtained with and without contrast. EGFR measured 41. 14 mL of MultiHance was administered intravenously. Restricted diffusion multiple lesions are noted in the right frontoparietal lobe straddling the central sulcus and involving both the pre and the post-central gyri. There are multiple restricted diffusion lesions noted in this region along the convexity extending slightly inferiorly towards the posterior body of the corpus callosum in the right paramidline aspect. The high associated increased T2 signal without any hemorrhage. No hydrocephalus or significant mass effect on the nearby structures are noted. Age appropriate brain parenchyma is seen. Moderate left mastoid and mild paranasal sinus mucosal thickening involving bilateral ethmoid sinuses are noted. Status post scleral banding of the right globe of the eye. Left ocular and orbital structures do not demonstrate any significant abnormality. Thin, coronal T2 sequence through the hippocampal formations are grossly unremarkable. Thick slices through the sella with the pituitary gland, pineal region and upper cervical spine are within normal limits. Vascular flow voids of the major cerebral arteries demonstrate lack of normal flow void of the right intracranial internal carotid artery extending from the distal cervical portion. There is distal reconstitution noted in the right MCA and right AMISHA. Refer to CT STS. [facility] A Service of [facility] RADIOLOGY TEXT RESULTS PATIENT: JENNIFER GUERRERO LOCATION: A 310-01 : 75 UNIT #: [id number] AGE: [address]: Deanne Roque MD SEX: M ORDER DR: angiogram head and neck from 12/12/2016. IMPRESSION 1. Evolving acute/delayed acute nonhemorrhagic lacunar infarcts are noted in the right frontoparietal lobe. Some have restricted diffusion while some have increased DWI signal without corresponding obvious decreased ADC signal. There are associated increased T2 signal changes also suggesting evolution towards early subacute state. Correlate clinically with timing of insult. 2. There is lack of normal vascular flow void of the right internal carotid artery along its intracranial course extending from the distal visualized right cervical ICA. There is reconstitution of right AMISHA and MCA distally in the head. Refer to CT angiogram of the head and neck from yesterday which demonstrates significant findings with occlusion of the right internal carotid artery within 1.5 cm of its origin. 3. No hydrocephalus, midline shift. 4. Findings were discussed with Dr. Mar at 3:40 p.m. on 12/13/2016. Dictated by... Mechelle Lopez M.D. THIS IS AN ELECTRONICALLY VERIFIED REPORT Mechelle Lopez M.D. at 12/15/2016 7:31 PM CPR/jt TD: 12/13/2016 23:21 JOB #: [id number] MRI CENTER REPORT Page 1 of 1 COPY
--- NOTE | ~2016-12-12 | HP ---
Unit #: [id number] #: [id number] Patient: JENNIFER MCCLURE [id number] [address] [address] [id number] I MR#: [id number] NAME: JENNIFER MCCLURE. ROOM: 310 Age: 41 Sex: M Admission Date: 12/13/2016 : 1975 Attending Physician: Deanne Roque M.D. Primary Care Physician: Anthony Duenas M.D. HISTORY AND PHYSICAL ADMISSION DIAGNOSES 1. Left-sided weakness, questionable cerebrovascular accident. 2. Hypertension. 3. Diabetes. 4. Peripheral neuropathy. 5. Chronic kidney disease on acute kidney injury. 6. Leukocytosis. HISTORY OF PRESENT ILLNESS Mr. Jennifer Mcclure is a 41-year-old gentleman, patient of Dr. Duenas, who comes to the emergency room with the complaints of the acute onset of left-sided upper and lower extremity weakness. Since then, his symptoms resolved. In the upper extremity he has full strength back; however, the lower extremity is still weak. 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 Otherwise, he denies any previous similar episodes and denies any heart attack or strokes in the past. He has insulin-dependent diabetes with a history of diabetic retinopathy on the right. He tells me that he has never been diagnosed with hypertension; however, his blood pressure is around 154/91. He denies any active chest pain, headache, dizziness, syncope, presyncope, lightheadedness, nausea, vomiting, diarrhea, fever, or chills, and denies any abdominal pain. So a 12-point review of systems on this patient basically is negative except as above. PAST MEDICAL HISTORY 1. Peripheral neuropathy. 2. Diabetes. PAST SURGICAL HISTORY None. HOME MEDICATIONS 1. Lantus. 2. Hydrocodone. 3. Lyrica. 4. Zanaflex. SOCIAL HISTORY He is a former smoker. He denies any alcohol or illicit drugs. FAMILY HISTORY Unremarkable. PHYSICAL EXAMINATION Unit #: [id number] #: [id number] Patient: JENNIFER MCCLURE GENERAL: Patient is a 41-year-old gentleman in no acute distress. VITAL SIGNS: Blood pressure 154/91, heart rate 82, respirations 16, and temperature 98. HEENT: Head is atraumatic. Pupils equal, round, and reactive to light on the left. On the right side, he has diabetic retinopathy. Pupils are un-assessable. Oropharynx clear. Face is symmetrical (1) midline. NECK: Supple. No mass, no JVD, and no bruits. CHEST: Diminished at bases but generally clear. CARDIOVASCULAR: S1 and S2. No murmurs. ABDOMEN: Soft, nontender, and nondistended. LOWER EXTREMITIES: Without any cyanosis, clubbing, or edema. NEUROLOGIC: Left lower extremity weakness 4 over 6. Gait deferred. The rest of the neurological exam is benign. DIAGNOSTIC STUDIES LABORATORY: Chemistry significant for BUN and creatinine of 15 and 1.7, blood glucose 182, and sodium 133. PT-INR-PTT 11.2, 1, and 164.8. Troponin less than 0.05. White count 13.7 and hemoglobin and hematocrit 13.5 and 42.3. IMAGING: CT of the head is negative. Chest x-ray negative. CT angiogram of the head and neck showed complete occlusion of the right internal carotid artery within 1.5 cm of its origin. No distal flow is seen. Decrease in caliber of bilateral vertebral arteries. Please see full report. ASSESSMENT AND PLAN 1. Left-sided weakness, questionable cerebrovascular accident, status post Neurology evaluation which is appreciated. Follow up on the MRI and continue aspirin. Will check the lipid panel. 2. Hypertension not treated before. Will lower gradually and continue to monitor. 3. Insulin-dependent diabetes. Continue Lantus. 4. Peripheral neuropathy. Continue home [place]. 5. Acute kidney injury on chronic kidney disease. Continue per Nephrology, follow up on workup, and avoid nephrotoxics. 6. Leukocytosis. Will check procalcitonin level. Chest x-ray negative. 7. Gastrointestinal and deep venous thrombosis prophylaxis. Patient is on Protonix and Lovenox. 1. Dictated by Baldemar Casey/ana TD: 12/14/2016 14:25 JOB #: [id number] Unit #: [id number] #: [id number] Patient: JENNIFER MCCLURE HISTORY AND PHYSICAL Page 1 of 1 X Daren Maya MD HISTORY AND PHYSICAL
--- NOTE | ~2016-12-12 | MR133 ---
[facility] A Service of [facility] RADIOLOGY TEXT RESULTS PATIENT: JENNIFER GUERRERO LOCATION: [facility] : 75 UNIT #: [id number] AGE: [address]: Deanne Roque MD SEX: M ORDER DR: [id number] [facility] [address] [place], [place] [address] [id number] MR#: [id number] Acc #: [id number] NAME: JENNIFER GUERRERO : 1975 SEX: M STUDY DATE/TIME: 12/15/2016 21:05 UNIT: [address] ROOM: 310 STUDY DESCRIPTION: MR MRA Neck WWo Contrast Attending Physician: Deanne Roque M.D. Ordering Physician: Shantel Mar M.D. Primary Care Physician: Anthony Duenas M.D. MRI CENTER REPORT This report is preliminary unless electronic signature is present. EXAM Cervical carotid MR angiogram HISTORY Onset of left-sided weakness, 12/12/2016 TECHNIQUE MR angiographic imaging was performed from the aortic arch up to the skull base. 14 mL of MultiHance was used. FINDINGS There is a bovine arch. The great vessels are widely patent. In the posterior circulation antegrade flow is seen in both vertebral arteries. The distal vertebrals up into the basilar artery origin are widely patent. In the carotid circulation the right internal carotid is occluded just above the carotid bulb. On the left side the bifurcation is widely patent with no stenosis by NASCET criteria. IMPRESSION Occluded right internal carotid artery just above the carotid bulb. Wide patency of the left carotid system and both vertebrals. No evidence of significant stenotic disease off of the arch. Dictated by... Sarkis Patel M.D. THIS IS AN ELECTRONICALLY VERIFIED REPORT Sarkis Patel M.D. at 12/16/2016 4:51 PM MATT/jethro [facility] A Service of [facility] RADIOLOGY TEXT RESULTS PATIENT: JENNIFER GUERRERO LOCATION: [facility] [address] : 75 UNIT #: [id number] AGE: [address]: Deanne Roque MD SEX: M ORDER DR: TD: 12/16/2016 13:17 JOB #: [id number] MRI CENTER REPORT Page 1 of 1 COPY
[2016-12-12 21:35] LABS: BASOPHIL# 0.1 X10e3 (0-0.3); BASOPHIL% 0.3 % (0-2.5); EOSINOPHIL% 0.2 % (0.0-7.0); HEMATOCRIT 45.1 % (38.0-50.0); HEMOGLOBIN 14.6 gm/dL (13.0-16.0); LYMPHOCYTE# 1.4 X10e3 (1.0-3.5); LYMPHOCYTE% 6.7 % (17.0-45.0); MEAN CORPUSCULAR HEMOGLOBIN 30.1 PG (28-34); MEAN CORPUSCULAR HGB CONC 32.3 g/dL (30-36); MEAN PLATELET VOLUME 9.2 FL (6.5-11.5); MONOCYTE# 1.4 X10e3 (0-1.0); MONOCYTE% 6.8 % (3.0-12.0); NEUTROPHIL# 17.6 X10e3 (1.5-7.1); PLATELET COUNT 116 X10e3 (140-420); RED BLOOD COUNT 4.85 X10e (3.90-5.60); RED CELL DISTRIBUTION WIDTH 12.9 % (11.0-15.5); WHITE BLOOD COUNT 20.4 X10e3 (4.0-10.5)
[2016-12-12 21:36] LABS: DIFF IND YES
[2016-12-12 21:49] LABS: BILIRUBIN, DIRECT 0.1 mg/dL (0.0-0.2); BILIRUBIN,INDIRECT 1.1 mg/dL (0.0-0.9); BILIRUBIN,TOTAL 1.2 mg/dL (0.2-2.0); BUN/CREATININE RATIO 6.81; CALCIUM SERUM 9.1 mg/dL (8.4-10.2); CREATININE SERUM 2.2 mg/dL (0.6-1.4); GLOM FILT RATE Estimated 41.6 mL/min (>60); PROTEIN TOTAL SERUM 7.1 g/dL (6.0-8.3)
[2016-12-12 21:51] LABS: POTASSIUM 5.9 mmol/L (3.5-5.1)
[2016-12-12 21:56] LABS: POC - CREATININE 1.57 mg/dL (0.64-1.27); POC - GFR >60.0 mL/min (>60)
[2016-12-12 21:57] LABS: CPK (CREATINE PHOSPHOKINASE) 358 IU/L (36-174)
[2016-12-12 21:58] LABS: ALCOHOL BLOOD <5 mg/dL (0)
[2016-12-12 22:02] LABS: ANISOCYTOSIS SL; DIFFERENTIAL COMMENT OCC.ATYLYMPH; PLATELET ESTIMATE NORMAL (NORMAL)
[2016-12-12 22:30] LABS: POC - CKMB 3.6 ng/mL (0.0-7.9); POC - TROPONIN <0.05 ng/mL (<=0.05)
[2016-12-12 22:45] LABS: PROTHROMBIN TIME (PATIENT) 11.2 SECONDS (10.0-11.7)
[2016-12-12 22:53] LABS: PARTIAL THROMBOPLASTIN TIME 164.8 SECONDS (23.5-31.3)
[2016-12-12] MEDS ORDERED: LANTUS100 U/ML SUBQ (23:01)
[2016-12-12] MEDS ORDERED: HYDROCODON-ACE1 EAC5 PO (23:01)
[2016-12-12] MEDS ORDERED: LYRICA50 MG PO (23:02)
[2016-12-12] MEDS ORDERED: ZANAFLEX4 M1 PO (23:03)
[2016-12-12 23:21] LABS: URINE SOURCE CLEAN CATCH
[2016-12-12 23:28] LABS: URINE APPEARANCE CLEAR; URINE BILIRUBIN NEG (NEG); URINE BLOOD TRACE (NEG); URINE COLOR YELLOW; URINE GLUCOSE >1000 MG/DL (NEG); URINE KETONE NEG (NEG); URINE LEUKOCYTE ESTERASE NEG (NEG); URINE NITRATE NEG (NEG); URINE PH 5.5 (5-8); URINE PROTEIN NEG (NEG); URINE SPECIFIC GRAVITY 1.038 (1.003-1.035); URINE UROBILINOGEN 0.2 MG/DL (NEG)
[2016-12-12 23:31] LABS: U HYALINE CASTS AUWI 0-2 /[LPF]; URBCS1 AUWI 0-2 /[HPF] (0-2); URINE BACTERIA AUWI NEG (NEGATIVE); URINE SQUAMOUS EPITHELIAL CELL NONE SEEN /[HPF]; UWBCS1 AUWI 0-2 (0-5)
[2016-12-12 23:33] LABS: CULTURE INDICATED? NO
[2016-12-12 23:38] LABS: AMPHETAMINE NEG (NEG); BARBITURATES NEG (NEG); BENZODIAZEPINES NEG (NEG); COCAINE NEG (NEG); MARIJUANA NEG (NEG); OPIATES POS (NEG); TRICYCLIC ANTIDEPRESSANTS NEG (NEG); U METHADONE NEG (NEG)
[2016-12-13 01:02] LABS: POC - CKMB 3.1 ng/mL (0.0-7.9); POC - TROPONIN <0.05 ng/mL (<=0.05)
[2016-12-13 04:38] LABS: BASOPHIL# 0.1 X10e3 (0-0.3); BASOPHIL% 0.8 % (0-2.5); DIFF IND NO; EOSINOPHIL# 0.2 X10e3 (0-0.7); EOSINOPHIL% 1.1 % (0.0-7.0); HEMATOCRIT 42.3 % (38.0-50.0); HEMOGLOBIN 13.5 gm/dL (13.0-16.0); LYMPHOCYTE# 3.2 X10e3 (1.0-3.5); LYMPHOCYTE% 23.5 % (17.0-45.0); MEAN CELL VOLUME 92.8 FL (83-96); MEAN CORPUSCULAR HEMOGLOBIN 29.6 PG (28-34); MEAN CORPUSCULAR HGB CONC 31.9 g/dL (30-36); MEAN PLATELET VOLUME 9.8 FL (6.5-11.5); MONOCYTE# 1.3 X10e3 (0-1.0); MONOCYTE% 9.5 % (3.0-12.0); NEUTROPHIL# 8.9 X10e3 (1.5-7.1); NEUTROPHIL% 65.1 % (40-75); PLATELET COUNT 106 X10e3 (140-420); RED BLOOD COUNT 4.56 X10e (3.90-5.60); RED CELL DISTRIBUTION WIDTH 12.9 % (11.0-15.5); WHITE BLOOD COUNT 13.7 X10e3 (4.0-10.5)
[2016-12-13 04:53] LABS: BUN/CREATININE RATIO 8.82; CALCIUM SERUM 8.5 mg/dL (8.4-10.2); CREATININE SERUM 1.7 mg/dL (0.6-1.4); GLOM FILT RATE Estimated 56.8 mL/min (>60); POTASSIUM 4.4 mmol/L (3.5-5.1)
[2016-12-13 13:46] LABS: FOLATE (FOLIC ACID) 6.1 ng/mL (>5.8)
[2016-12-13 14:29] LABS: CHOLESTEROL 210 mg/dL (0-200); HDL CHOLESTEROL 50 mg/dL (29-75); LDL CHOLESTEROL 100 mg/dL (-130); LDL/HDL RATIO 2 RATIO (0-4); TRIGLYCERIDES 298 mg/dL (10-160)
[2016-12-14 06:09] LABS: HEMATOCRIT 39.5 % (38.0-50.0); HEMOGLOBIN 12.7 gm/dL (13.0-16.0); MEAN CELL VOLUME 93.3 FL (83-96); MEAN CORPUSCULAR HEMOGLOBIN 30.1 PG (28-34); MEAN CORPUSCULAR HGB CONC 32.3 g/dL (30-36); MEAN PLATELET VOLUME 10.6 FL (6.5-11.5); RED BLOOD COUNT 4.23 X10e (3.90-5.60); RED CELL DISTRIBUTION WIDTH 12.8 % (11.0-15.5); RETICULOCYTE 0.9 % (0.5-2.8)
[2016-12-14 06:12] LABS: WHITE BLOOD COUNT 6.2 X10e3 (4.0-10.5)
[2016-12-14 06:57] LABS: THYROID STIMULATING HORMONE 0.62 uIU/ml (0.34-5.60)
[2016-12-14 07:10] LABS: MAGNESIUM 1.8 mg/dL (1.6-3.0); PHOSPHOROUS 3.7 mg/dL (2.5-4.6)
[2016-12-14 07:56] LABS: PROCALCITONIN 0.07 NG/ML
[2016-12-15 08:36] LABS: BASOPHIL# 0.1 X10e3 (0-0.3); BASOPHIL% 0.9 % (0-2.5); DIFF IND NO; EOSINOPHIL# 0.2 X10e3 (0-0.7); EOSINOPHIL% 3.7 % (0.0-7.0); HEMATOCRIT 40.8 % (38.0-50.0); HEMOGLOBIN 13.3 gm/dL (13.0-16.0); LYMPHOCYTE# 2.3 X10e3 (1.0-3.5); LYMPHOCYTE% 34.7 % (17.0-45.0); MEAN CELL VOLUME 91.3 FL (83-96); MEAN CORPUSCULAR HEMOGLOBIN 29.7 PG (28-34); MEAN CORPUSCULAR HGB CONC 32.5 g/dL (30-36); MEAN PLATELET VOLUME 9.2 FL (6.5-11.5); MONOCYTE# 0.8 X10e3 (0-1.0); MONOCYTE% 12.6 % (3.0-12.0); NEUTROPHIL# 3.1 X10e3 (1.5-7.1); NEUTROPHIL% 48.1 % (40-75); PLATELET COUNT 106 X10e3 (140-420); RED BLOOD COUNT 4.47 X10e (3.90-5.60); RED CELL DISTRIBUTION WIDTH 12.7 % (11.0-15.5); WHITE BLOOD COUNT 6.5 X10e3 (4.0-10.5)
[2016-12-15 09:00] LABS: GLOM FILT RATE Estimated 107.9 mL/min (>60); MAGNESIUM 1.7 mg/dL (1.6-3.0)
[2016-12-18 04:25] LABS: MB 6.4 ng/ml
[2016-12-20 05:38] LABS: HEMATOCRIT 40.1 % (38.0-50.0); HEMOGLOBIN 13.4 gm/dL (13.0-16.0); MEAN CELL VOLUME 91.7 FL (83-96); MEAN CORPUSCULAR HEMOGLOBIN 30.7 PG (28-34); MEAN CORPUSCULAR HGB CONC 33.5 g/dL (30-36); MEAN PLATELET VOLUME 9.8 FL (6.5-11.5); RED BLOOD COUNT 4.37 X10e (3.90-5.60); RED CELL DISTRIBUTION WIDTH 12.8 % (11.0-15.5); WHITE BLOOD COUNT 8.6 X10e3 (4.0-10.5)
[2016-12-20 06:05] LABS: BUN/CREATININE RATIO 12.72; CALCIUM SERUM 9.4 mg/dL (8.4-10.2); CREATININE SERUM 1.1 mg/dL (0.6-1.4); GLOM FILT RATE Estimated 96.2 mL/min (>60); POTASSIUM 4.5 mmol/L (3.5-5.1)
== END 2016-12-20 17:00 | DRG 65 ==
LOC: CED 20:53 → CEDOF 12-13 00:55 → C3A PCU 12-13 00:55
PROVIDERS: Emergency Medicine; Hospitalist; Internal Medicine; Internal Medicine Nephrology; Physician Assistant Medical; Psychiatry & Neurology Neurology
PROC: B325YZZ Computerized Tomography (CT Scan) of Bilateral Common Carotid Arteries using Other Contrast (ICD-10-PCS; principal; 2016-12-13)
PROC: B32GYZZ Computerized Tomography (CT Scan) of Bilateral Vertebral Arteries using Other Contrast (ICD-10-PCS; 2016-12-13)
PROC: B32RYZZ Computerized Tomography (CT Scan) of Intracranial Arteries using Other Contrast (ICD-10-PCS; 2016-12-13)
PROC: B328YZZ Computerized Tomography (CT Scan) of Bilateral Internal Carotid Arteries using Other Contrast (ICD-10-PCS; 2016-12-13)
PROC: B24BZZZ Ultrasonography of Heart with Aorta (ICD-10-PCS; 2016-12-13)
PROC: B24BZZ4 Ultrasonography of Heart with Aorta, Transesophageal (ICD-10-PCS; 2016-12-16)
DX: I63.511 Cerebral infarction due to unspecified occlusion or stenosis of right middle cerebral artery (principal); G81.94 Hemiplegia, unspecified affecting left nondominant side; N17.9 Acute kidney failure, unspecified; E11.40 Type 2 diabetes mellitus with diabetic neuropathy, unspecified; E11.65 Type 2 diabetes mellitus with hyperglycemia; D69.6 Thrombocytopenia, unspecified; E87.1 Hypo-osmolality and hyponatremia; I12.9 Hypertensive chronic kidney disease with stage 1 through stage 4 chronic kidney disease, or unspecified chronic kidney disease; N18.9 Chronic kidney disease, unspecified; F17.210 Nicotine dependence, cigarettes, uncomplicated; I65.21 Occlusion and stenosis of right carotid artery; R07.9 Chest pain, unspecified; Z79.4 Long term (current) use of insulin; E78.5 Hyperlipidemia, unspecified; D72.829 Elevated white blood cell count, unspecified; E87.5 Hyperkalemia; G89.29 Other chronic pain; Z83.3 Family history of diabetes mellitus; Z88.0 Allergy status to penicillin; Z88.5 Allergy status to narcotic agent; Z88.8 Allergy status to other drugs, medicaments and biological substances
CPT/HCPCS: 36415; 70450; 70496; 70498; 70544; 70549; 70553; 71010; 76770; 78452; 80048; 80061; 80076; 80307; 81003; 82308; 82533; 82550; 82553; 82565; 82607; 82746; 82947; 83036; 83605; 83615; 83735; 83935; 84100; 84300; 84443; 84484; 85025; 85027; 85044; 85379; 85610; 85730; 87040; 89190; 92610; 93005; 93017; 93225; 93226; 93306; 93312; 96360; 97110; 97116; 97163; 97166; 97530; 97535; 99291; A9500; A9577; C9113; G0480; G8978-GP; G8979-GP; G8987-GO; G8988-GO; G8996-GN; G8997-GN; G8998-GN; J0360; J1642; J1650; J1815; J2250; J2785; J3010; Q9967